=== PATIENT | male | born 1970 | race Caucasian/White ===

== ENCOUNTER → 2017-11-24 | Outpatient (CLI) | payer BC ==
[2017-11-24 16:25] LABS: Basophils % (A) 0 %; Eosinophils # (A) 0.1 k/uL (0-0.7); Eosinophils % (A) 1 %; HCT 49.3 % (39.0-53.0); HGB 15.9 gm/dL (13.0-17.5); Lymphocytes # (A) 1.8 k/uL (1.0-4.8); Lymphocytes % (A) 26 %; MCH 30.5 pg (25.0-35.0); MCHC 32.4 g/dL (31.0-37.0); MCV 94.3 fL (80.0-100.0); Mean Platelet Volume 7.8; Monocytes # (A) 0.5 k/uL (0-1.0); Monocytes % (A) 8 %; Neutrophils # (A) 4.4 k/uL (1.3-7.7); Neutrophils % (A) 63 %; Platelet Count 273 k/uL (150-450); RBC 5.23 m/uL (4.30-5.90); RDW 11.9 % (11.5-15.5); WBC 6.9 k/uL (3.8-10.6)
[2017-11-24 16:31] LABS: ALT 23 U/L (21-72); AST 29 U/L (17-59); Albumin 4.5 g/dL (3.5-5.0); Alkaline Phosphatase 63 U/L (38-126); Anion Gap 11 mmol/L; Blood Urea Nitrogen 18 mg/dL (9-20); Calcium 9.7 mg/dL (8.4-10.2); Carbon Dioxide 29 mmol/L (22-30); Chloride 103 mmol/L (98-107); Glucose 82 mg/dL (74-99); Magnesium 2.2 mg/dL (1.6-2.3); Potassium 4.8 mmol/L (3.5-5.1); Sodium 143 mmol/L (137-145); Total Bilirubin 0.8 mg/dL (0.2-1.3); Total Protein 7.6 g/dL (6.3-8.2)
[2017-11-24 16:46] LABS: T4, Free (Free Thyroxine) 1.15 ng/dL (0.78-2.19)
== END ==
LOC: LABMAIN 14:16
PROVIDERS: ATTEND Emergency Medicine
DX: R42 Dizziness and giddiness (principal); R53.83 Other fatigue
CPT/HCPCS: 36415; 80053; 83735; 84270; 84403; 84439; 84443; 85025

== ENCOUNTER 2018-09-11 09:18 | Day surgery (SDC) | payer BC ==
[2018-09-08 17:52] VITALS: BMI 24.8
[~2018-09-11 09:18] MED LIST: LACTATED RINGERS 1,000 ML IV SCH
[2018-09-11] MEDS ORDERED: LIDOCAINE 1% 20 ML VIAL (10MG/ML) FOR IV START INTRADERMA ONE (09:31)
[2018-09-11 09:43] VITALS: RESP 16; TEMP 97.6
[2018-09-11] MEDS ORDERED: PROPOFOL 10 MG/ML 20 ML VIAL IV ONE (10:31)
--- NOTE | 2018-09-11 10:48 | P.PCN ---
Date of Procedure: 09/11/18 Procedure(s) Performed: BRIEF HISTORY: Patient is a 47-year-old pleasant, white male scheduled for an elective colonoscopy as a part of surveillance of long-standing history of ulcerative colitis diagnosed in 1999. His being maintained on balsalazide 3 tablets 3 times daily and for the last few weeks has been having 5-6 bowel movements with small amount of blood or mucus in the stool. PROCEDURE PERFORMED: Colonoscopy with biopsy. PREOPERATIVE DIAGNOSIS: Long-standing history of ulcerative colitis. IV sedation per Anesthesia. PROCEDURE: After informed consent was obtained, the patient, was brought into the endoscopy unit. IV sedation was administered by Anesthesia under continuous monitoring. Digital rectal examination was normal. Initially the Olympus CF- 160 flexible video colonoscope was then inserted in the rectum, gradually advanced into the cecum without any difficulty. Careful examination was performed as the scope was gradually being withdrawn. Ileocecal valve and the appendiceal orifice were visualized and appeared normal. Prep was excellent. Mucosa of the cecum, ascending colon, transverse colon, descending colon, sigmoid colon, appeared normal. In the rectum there was mucus and erythema friability granularity spontaneous oozing with superficial erosions consistent with active proctitis. Multiple random biopsies were done from the cecum to rectum at every 10 cm intervals. Retroflexion was performed in the rectum and no lesions were seen. The patient tolerated the procedure well. IMPRESSION: Active proctitis Rest of the colon appeared normal RECOMMENDATIONS: Findings of this examination were discussed with the patient as his family. He was advised to follow with the biopsy results. He will be started on Canasa suppositories once at bedtime and continue with balsalazide 3 tablets 3 times daily. He will be seen in office in 6 weeks.
[2018-09-11 11:13] VITALS: BP 112/70; PULSE 78
== END 2018-09-11 11:36 | disposition home or self-care (01) ==
LOC: ORWHC2ENDO 09:18
PROVIDERS: ATTEND Internal Medicine Gastroenterology
DX: K51.20 Ulcerative (chronic) proctitis without complications (principal); Z79.899 Other long term (current) drug therapy
CPT/HCPCS: 88305; 45380; J2704

== ENCOUNTER 2020-02-19 18:41 | Emergency (ER) | payer BC ==
[2020-02-19 18:49] VITALS: BP 140/72; PULSE 75; RESP 18; TEMP 98
[2020-02-19] MEDS ORDERED: DIPH,PERTUS(ACELL)TETVAC-LF 0.5 ML VIAL IM ONE (18:49)
--- NOTE | 2020-02-19 19:19 | ED ---
Wound/Laceration HPI - General Chief Complaint: Wound/Laceration Stated Complaint: Knee Lac Source: EMS Limitations: no limitations - History of Present Illness Initial Comments: 49-year-old male who denies past history presenting today for chief complaint of left knee laceration. Patient states she sustained it via a chainsaw. Patient states it occurred a few hours prior and he had cleaned out the wound and applied a bandage and continue to work. Patient denies a limitations in range of motion at the knee or strength. Patient is unsure of his last tetanus. Patient denies any other areas of injury. Remaining review of systems negative - Related Data Home Medications Medication Instructions Recorded Confirmed Balsalazide Disodium [Colazal] 2,250 mg PO TID 09/03/16 09/11/18 Allergies Allergy/AdvReac Type Severity Reaction Status Date / Time No Known Allergies Allergy Verified 09/08/18 17:47 Review of Systems ROS Statement: Those systems with pertinent positive or pertinent negative responses have been documented in the HPI. ROS Other: All systems not noted in ROS Statement are negative. Past Medical History Additional Past Medical History / Comment(s): COLITIS. History of Any Multi-Drug Resistant Organisms: None Reported Past Surgical History: Orthopedic Surgery Additional Past Surgical History / Comment(s): LT elbow. COLONOSCOPY Past Anesthesia/Blood Transfusion Reactions: No Reported Reaction Past Psychological History: No Psychological Hx Reported Smoking Status: Never smoker - Past Family History Mother Family Medical History: No Reported History General Exam - General Exam Comments Initial Comments: General: The patient is awake and alert, in no distress, and does not appear acutely ill. Eye: Pupils are equal, round and reactive to light, extra-ocular movements are intact. No nystagmus. There is normal conjunctiva bilaterally. No signs of icterus. Musculoskeletal: Normal ROM, no tenderness. Strength 5/5. Sensation intact proximal and distal to the injury site, extensor mechanism intact, no exposure of tendon within the 4cm laceration of the left sided linear knee laceration slightly medial . Neurological: A&O x 3. CN II-XII intact grossly, There are no obvious motor or sensory deficits. Coordination appears grossly intact. Speech is normal. Skin: Skin is warm and dry and no rashes or lesions are noted. Psychiatric: Cooperative, appropriate mood & affect, normal judgment. Limitations: no limitations Course Vital Signs 02/19/20 18:45 Temperature 98.0 F Pulse Rate 75 Respiratory 18 Rate Blood Pressure 140/72 O2 Sat by Pulse 98 Oximetry Procedures - Laceration Laceration #1 Consent Obtained: verbal consent Indication: laceration Site: lower extremity (left knee) Size (cm): 5 Description: linear, clean Depth: simple, single layer Anesthetic Used: lidocaine 1% Anesthesia Technique: local infiltration Amount (mls): 2 Pre-repair: wound explored, irrigated extensively, deep structures intact Type of Sutures: nylon Size of Sutures: 3-0 Number of Sutures: 7 Technique: simple, interrupted Patient Tolerated Procedure: well, no complications Additional Comments: cleansed with iodine and irrigated Medical Decision Making - Medical Decision Making 49-year-old male presenting today for chief complaint of left knee laceration. After cleansing and irrigation the wound was closed wound edges approximated well. Patient refused x-ray. Tetanus updated. Patient shows no evidence of neurovascular damage. No loss of extensor mechanism and redness just medial of suspected location of patellar and quadriceps tendon. Patient will be discharged with primary care follow-up and return parameters for infection. Discussed timely removal patient is discharged appearing well Disposition Clinical Impression: Knee laceration Disposition: HOME SELF-CARE Condition: Good Instructions (If sedation given, give patient instructions): Care For Your Stitches (ED), Laceration (ED) Additional Instructions: Please use medication as discussed. Please follow-up for suture removal in the next 7-10 days. These monitor for signs infection such as redness drainage increasing pain. Please return to emergency room if the symptoms increase or worsen or for any other concerns. Is patient prescribed a controlled substance at d/c from ED?: No Referrals: Dipesh Perez DO [Primary Care Provider] - 1-2 days Time of Disposition: 19:19
== END 2020-02-19 19:22 | disposition home or self-care (01) ==
LOC: EC 18:41
DX: S81.012A Laceration without foreign body, left knee, initial encounter (principal); Z23 Encounter for immunization; Z87.19 Personal history of other diseases of the digestive system; Z79.899 Other long term (current) drug therapy; W29.3XXA Contact with powered garden and outdoor hand tools and machinery, initial encounter; Y93.89 Activity, other specified; Y92.009 Unspecified place in unspecified non-institutional (private) residence as the place of occurrence of the external cause
CPT/HCPCS: 12002; 90471; 90715; 99283

== ENCOUNTER → 2020-10-20 | Day surgery (SDC) | payer BC ==
[~2020-10-20] MED LIST changes: +LACTATED RINGERS 1,000 ML IV ONE; -LACTATED RINGERS 1,000 ML IV SCH; +MIDAZOLAM 2 MG/2 ML VIAL ONE; +PROPOFOL 10 MG/ML 20 ML VIAL IV ONE; +fentaNYL (PF) 50 MCG/ML 2 ML AMP ONE
[2020-10-20 12:24] VITALS: RESP 16; TEMP 99.4
--- NOTE | 2020-10-20 13:12 | P.PCN ---
Date of Procedure: 10/20/20 Procedure(s) Performed: BRIEF HISTORY: Patient is a 50-year-old pleasant male scheduled for an elective colonoscopy as a part of surveillance of long-standing history of ulcerative colitis diagnosed in 1999. He remains in clinical remission. PROCEDURE PERFORMED: Colonoscopy with random biopsies. PREOPERATIVE DIAGNOSIS: Long-standing history of ulcerative colitis. IV sedation per Anesthesia. PROCEDURE: After informed consent was obtained, the patient, was brought into the endoscopy unit. IV sedation was administered by Anesthesia under continuous monitoring. Digital rectal examination was normal. Initially the Olympus CF-160 flexible video colonoscope was then inserted in the rectum, gradually advanced into the cecum without any difficulty. Careful examination was performed as the scope was gradually being withdrawn. Ileocecal valve and the appendiceal orifice were visualized and appeared normal. Prep was excellent. Mucosa of the cecum, ascending colon, transverse colon, descending colon, sigmoid colon, and rectum appeared normal. Random biopsies were done from the cecum to rectum at every 10 cm into well. Retroflexion was performed in the rectum and no lesions were seen. The patient tolerated the procedure well. IMPRESSION: Normal-appearing colon from rectum to cecum with no evidence of colitis or colorectal neoplasia . RECOMMENDATIONS: Findings of this examination were discussed with the patient as well as his family. He was advised to follow with the biopsy result. If the biopsy does not show any evidence of dysplasia, he can have a repeat colonoscopy in 2 years..
[2020-10-20 13:39] VITALS: BP 104/65; PULSE 69
== END ==
LOC: ORWHC2ENDO 11:50
PROVIDERS: ATTEND Internal Medicine Gastroenterology
DX: Z12.11 Encounter for screening for malignant neoplasm of colon (principal); K51.90 Ulcerative colitis, unspecified, without complications; Z98.890 Other specified postprocedural states
CPT/HCPCS: 88305; 45380; J2250; J3010; J2704

== ENCOUNTER 2023-07-11 09:25 | Day surgery (SDC) | payer BC ==
[~2023-07-11 09:25] MED LIST changes: -LACTATED RINGERS 1,000 ML IV ONE; +LACTATED RINGERS 1,000 ML IV SCH; +LIDOCAINE 1% (10MG/ML) FOR IV START INTRADERMA PRN; -MIDAZOLAM 2 MG/2 ML VIAL ONE; -PROPOFOL 10 MG/ML 20 ML VIAL IV ONE; -fentaNYL (PF) 50 MCG/ML 2 ML AMP ONE
[2023-07-11 09:55] VITALS: TEMP 97.4
[2023-07-11] MEDS ORDERED: LIDOCAINE 1% INJ 10MG/ML (20 ML MDV) ONE (10:50)
[2023-07-11] MEDS ORDERED: PROPOFOL 10 MG/ML 20 ML VIAL IV ONE (10:50)
--- NOTE | 2023-07-11 11:11 | P.PCN ---
Date of Procedure: 07/11/23 Procedure(s) Performed: BRIEF HISTORY: Patient is a 52-year-old pleasant white male scheduled for an elective colonoscopy as a part of surveillance of long-standing history of ulcerative colitis diagnosed in 1999. He remains in clinical remission. Presently maintained on balsalazide daily. PROCEDURE PERFORMED: Colonoscopy with random biopsies.. PREOPERATIVE DIAGNOSIS: Long-standing history of ulcerative colitis. IV sedation per Anesthesia. PROCEDURE: After informed consent was obtained, the patient, was brought into the endoscopy unit. IV sedation was administered by Anesthesia under continuous monitoring. Digital rectal examination was normal. Initially the Olympus CF-160 flexible video colonoscope was then inserted in the rectum, gradually advanced into the cecum without any difficulty. Careful examination was performed as the scope was gradually being withdrawn. Ileocecal valve and the appendiceal orifice were visualized and appeared normal. Prep was excellent. Mucosa of the cecum, ascending colon, transverse colon, descending colon, sigmoid colon, appeared normal. Random biopsies were done from cecum to rectum at every 10 cm into well. In the rectum there was mild mucosal erythema noted consistent with proctitis and biopsies were done from this area. Retroflexion was performed in the rectum and no lesions were seen. The patient tolerated the procedure well. IMPRESSION: Mild erythema in the rectum consistent with proctitis Rest the colon appeared normal RECOMMENDATIONS: Findings of this examination were discussed with the patientas well as his family. He was advised to follow with the biopsy results. Continue balsalazide 3 tablets 3 times daily. If the biopsy does not show any evidence of dysplasia , recommend a repeat colonoscopy in 2 years.
[2023-07-11 12:14] VITALS: BP 110/74; PULSE 64; RESP 14
== END 2023-07-11 12:00 | disposition home or self-care (01) ==
LOC: ORWHC2ENDO 09:25
PROVIDERS: ATTEND Internal Medicine Gastroenterology
DX: K62.89 Other specified diseases of anus and rectum (principal); K51.90 Ulcerative colitis, unspecified, without complications; F10.90 Alcohol use, unspecified, uncomplicated; Z87.19 Personal history of other diseases of the digestive system; Z79.899 Other long term (current) drug therapy
CPT/HCPCS: 88305; 45380; J2001; J2704